=== PATIENT | male | born 2000 | race Caucasian/White ===

== ENCOUNTER 2022-02-12 14:25 | Emergency (ER) | payer OTHER, SELFPAY ==
--- NOTE | ~2022-02-12 | XR_ITS ---
EXAMINATION: XR KNEE, RIGHT CLINICAL INFORMATION: Pain status post fall COMPARISON: None TECHNIQUE: Four views of the right knee. FINDINGS: Bones and soft tissues are normal. No fracture or joint effusion. Alignment is anatomic. Joint spaces are well maintained. No abnormal soft tissue calcification. XR/XR knee RT 4V IMPRESSION: No bony abnormality of the right knee identified.
[2022-02-12 14:35] VITALS: BP 135/43; PULSE 61; RESP 16; TEMP 36.9; O2SAT 98; BMI 18.4
--- NOTE | 2022-02-12 15:21 | ED.LOWEXIN ---
HPI - Extremity Injury (Lower) General Chief Complaint: Extremity Problem Stated Complaint: knee injury Time Seen by Provider: 02/12/22 14:46 Source: patient Mode of arrival: ambulatory Limitations: no limitations History of Present Illness HPI Narrative: 21 y/o male presents to the ER for evaluation of right knee pain after [place] skate park 3 weeks ago. He states when dropping into a ramp he fell directly onto the knee. He denies any major pain or swelling at the time. He was able to keep skating. The next day and for the last 3 weeks he has had knee pain in the lateral part of the knee after he is on his feet for several hours, especially at work. He denies any swelling, numbness, tingling or weakness. He has been wearing a knee brace for support with some relief. MD complaint: knee injury Onset (ago): week(s) (3) Injury: Left: knee Type of Injury: blunt Place: street/outdoors Severity: mild Severity scale (1-10): 4 Relieving factors: NSAID, immobilization and rest Exacerbating factors: weight bearing and movement Context: fall Associated symptoms: ambulatory Other symptoms: none Related Data Allergies Allergy/AdvReac Type Severity Reaction Status Date / Time egg Allergy Rash Verified 02/12/22 14:39 Review of Systems Review of Systems: Constitutional: No Fever, No Chills Gastrointestinal: No Nausea, No Vomiting Musculoskeletal: + joint pain, No Myalgias Skin: No Skin Lesions, No rash Neuro: No Weakness, No Numbness Heme/Lymph: No Bruising, No Lymphadenopathy PMFSH Social History Social History Advance Directives: No Advance Directives Information Provided: No Physical Exam Vital Signs: Vital Signs: Last Vital Signs Temp 98.4 F 02/12/22 14:35 Pulse 61 02/12/22 14:35 Resp 16 02/12/22 14:35 BP 135/43 L 02/12/22 14:35 Pulse Ox 98 02/12/22 14:35 BMI result Body Mass Index 18.4 Appearance: Alert. Oriented X3. No acute distress. HEENT: normal inspection CVS: Normal heart rate and rhythm. Pulses normal. Respiratory: No respiratory distress. Skin: Skin warm and dry. Normal skin color. Normal skin turgor. No rashes. Extremities: normal inspection of bilateral knees, normal ROM and palpation. Negative anterior drawer. No pain with varus and valgus stress. Mild tenderness of the lateral joint line. NV intact distally. Neuro: Oriented X 3. No motor deficit. No sensory deficit. Steady gait Course Course Course Narrative: 21-year-old male presents to the ER with 3 weeks of right knee pain after he fell at a skate park 3 weeks ago. He states pain is mostly in the lateral aspect of the knee and worse when he is on his feet for several hours. Examination is unremarkable with no swelling, no joint laxity appreciated. Will get x-rays, Although doubt acute fracture or effusion. Reevaluation(s) Reevaluation #1: X-ray normal. Encourage follow-up with orthopedics as needed for further evaluation. Work note provided per request Discharge Plan Discharge Clinical Impression: Knee pain Patient Disposition: Home, Self-Care Instructions: Knee Pain (ED) Additional Instructions: Your x-ray today was normal. Recommend following up with Orthopedics for further evaluation of a possible ligament or meniscus injury - name and number below Continue to wear the knee brace as needed for support and compression. Rest and use ice several times per day Take ibuprofen or tylenol as needed for pain Referrals: Wesley Matthews MD [Physician] - 1 week (right knee injury 3 weeks ago, still having pain. XR normal. ) Stand Alone Forms: Work/School Release
== END 2022-02-12 15:55 | disposition home or self-care (01) ==
LOC: HO.ED 15:30
PROVIDERS: Emergency Provider Emergency Medicine
DX: M25.561 Pain in right knee (principal)
CPT/HCPCS: 73564; 99283